=== PATIENT | female | born 1995 | race Two or more races ===

== ENCOUNTER 2025-09-25 09:14 | Outpatient (CLI) | payer OTHER ==
[2025-09-25 09:58] LABS: Anion Gap 9 (5-15); Carbon Dioxide 27 mmol/L (20-31); Chloride 105 mmol/L (98-107); Potassium 4.0 mmol/L (3.5-5.1); Sodium 141 mmol/L (136-145)
[2025-09-25 09:59] LABS: Calcium 9.3 mg/dL (8.7-10.4)
[2025-09-25 10:03] LABS: Glucose 85 mg/dL (74-106)
[2025-09-25 10:04] LABS: BUN/Creatinine Ratio 21.7 (10.0-20.0); Blood Urea Nitrogen 15 mg/dL (9-23)
== END 2025-09-25 17:00 | disposition home or self-care (01) ==
LOC: LAB 09:14
PROVIDERS: ATTEND Nurse Practitioner Family
DX: D25.9 Leiomyoma of uterus, unspecified (principal)
CPT/HCPCS: 36415; 80048; 83615; 86304